=== PATIENT | female | born 1965 | race Two or more races ===

== ENCOUNTER 2020-10-09 13:13 | Outpatient (CLI) | payer OTHER | END 2020-10-09 17:21 | disposition home or self-care (01) | LOC: OFIC 805 13:13 | PROVIDERS: ATTEND Otolaryngology Otology & Neurotology | DX: D35.6 Benign neoplasm of aortic body and other paraganglia (principal); H81.392 Other peripheral vertigo, left ear; F07.81 Postconcussional syndrome ==

== ENCOUNTER 2020-10-31 13:18 | Outpatient (CLI) | payer OTHER | END 2020-11-01 09:58 | disposition home or self-care (01) | LOC: OFIC 805 13:18 | PROVIDERS: ATTEND Otolaryngology Otology & Neurotology | DX: H81.392 Other peripheral vertigo, left ear (principal); F07.81 Postconcussional syndrome; H90.3 Sensorineural hearing loss, bilateral ==